=== PATIENT | female | born 1950 | race Caucasian/White ===

== ENCOUNTER 2018-07-20 18:53 | Outpatient (REF) | payer MEDICARE, BC, SELFPAY ==
[2018-07-20 20:46] LABS: ALT 52 U/L (12-78); AST 30 U/L (15-37); Albumin 3.5 g/dL (3.4-5.0); Alkaline Phosphatase 73 U/L (46-116); Anion Gap 7.2 mmol/L (3-11); BUN 22 mg/dL (7-18); Bilirubin, Total 0.6 mg/dL (0.2-1.0); CO2 30.8 mmol/L (21.0-32.0); CREATININE 0.95 mg/dL (0.55-1.02); Calcium 9.5 mg/dL (8.5-10.1); Chloride 101 mmol/L (98-107); Cholesterol 190 mg/dL (50-200); Glucose 101 mg/dL (70-100); HDL Cholesterol 66 mg/dL (40-60); LDL CHOLESTEROL 102 mg/dL (<100); Potassium 4.1 mmol/L (3.5-5.1); Sodium 139 mmol/L (136-145); Total Protein 7.2 g/dL (6.4-8.2); Triglyceride 103 mg/dL (30-150)
== END 2018-07-20 19:13 ==
LOC: NCHCN 18:53
PROVIDERS: PCP Family Medicine; Visit Provider Family Medicine
DX: I10 Essential (primary) hypertension (principal); E78.5 Hyperlipidemia, unspecified
CPT/HCPCS: 80053; 80061; 83721

== ENCOUNTER 2019-07-26 09:34 | Outpatient (REF) | payer MEDICARE, BC, SELFPAY ==
[2019-07-26 21:00] LABS: ALT 41 U/L (14-59); AST 24 U/L (15-37); Albumin 3.7 g/dL (3.4-5.0); Alkaline Phosphatase 69 U/L (46-116); Anion Gap 9.6 mmol/L (3-11); BUN 17 mg/dL (7-18); Bilirubin, Total 0.5 mg/dL (0.2-1.0); CO2 29.4 mmol/L (21.0-32.0); CREATININE 0.99 mg/dL (0.55-1.02); Calcium 9.5 mg/dL (8.5-10.1); Calculated LDL 109 mg/dL (<100); Chloride 103 mmol/L (98-107); Cholesterol 186 mg/dL (<200); Estimated GFR 55.61 (mL/min/1.73m2); Glucose 105 mg/dL (74-106); HDL Cholesterol 60 mg/dL (40-60); Hemoglobin A1C 5.4 % (3.8-5.6); Potassium 3.7 mmol/L (3.5-5.1); Sodium 142 mmol/L (136-145); Total Protein 6.9 g/dL (6.4-8.2); Triglyceride 86 mg/dL (<150)
== END 2019-07-26 09:54 ==
LOC: NCHCN 09:34
PROVIDERS: PCP Family Medicine; Visit Provider Family Medicine
DX: I10 Essential (primary) hypertension (principal); E78.5 Hyperlipidemia, unspecified; E66.9 Obesity, unspecified; Z13.1 Encounter for screening for diabetes mellitus
CPT/HCPCS: 80053; 80061; 83036

== ENCOUNTER 2021-10-02 21:10 | Outpatient (REF) | payer MEDICARE, SELFPAY ==
[2021-10-02 15:26] LABS: ALT 49 U/L (14-59); AST 27 U/L (15-37); Albumin 3.9 g/dL (3.4-5.0); Alkaline Phosphatase 71 U/L (46-116); Anion Gap 9.2 mmol/L (3-11); BUN 19 mg/dL (7-18); Bilirubin, Total 0.5 mg/dL (0.2-1.0); CO2 28.8 mmol/L (21.0-32.0); CREATININE 0.8 mg/dL (0.55-1.02); Calcium 9.4 mg/dL (8.5-10.1); Calculated LDL 118 mg/dL (<100); Chloride 103 mmol/L (98-107); Cholesterol 210 mg/dL (<200); Glucose 95 mg/dL (74-106); HDL Cholesterol 71 mg/dL (40-60); Potassium 3.6 mmol/L (3.5-5.1); Sodium 141 mmol/L (136-145); Total Protein 7.2 g/dL (6.4-8.2); Triglyceride 107 mg/dL (<150)
[2021-10-02 15:54] LABS: Hemoglobin A1C 5.4 % (<5.7)
== END 2021-10-02 21:11 | disposition home or self-care (01) ==
LOC: NCHCN 21:10
PROVIDERS: PCP Family Medicine; Visit Provider Family Medicine
DX: E78.5 Hyperlipidemia, unspecified (principal); I10 Essential (primary) hypertension; R79.89 Other specified abnormal findings of blood chemistry
CPT/HCPCS: 80053; 80061; 83036

== ENCOUNTER 2022-03-10 08:54 | Outpatient (REF) | payer MEDICARE, SELFPAY ==
[2022-03-10 16:17] LABS: Calculated LDL 82 mg/dL (<100); Cholesterol 176 mg/dL (<200); HDL Cholesterol 79 mg/dL (40-60); Triglyceride 79 mg/dL (<150)
== END 2022-03-10 08:55 | disposition home or self-care (01) ==
LOC: NCHCN 08:54
PROVIDERS: PCP Family Medicine; Visit Provider Family Medicine
DX: E78.5 Hyperlipidemia, unspecified (principal)
CPT/HCPCS: 80061

== ENCOUNTER 2022-10-06 18:20 | Outpatient (REF) | payer MEDICARE, SELFPAY ==
[2022-10-06 19:20] LABS: HGB 15.4 g/dL (11.2-15.7)
[2022-10-06 20:00] LABS: ALT 57 U/L (14-59); AST 35 U/L (15-37); Albumin 3.9 g/dL (3.4-5.0); Alkaline Phosphatase 75 U/L (46-116); Anion Gap 7.5 mmol/L (3-11); BUN 20 mg/dL (7-18); Bilirubin, Total 0.4 mg/dL (0.2-1.0); CO2 29.5 mmol/L (21.0-32.0); Calcium 9.5 mg/dL (8.5-10.1); Calculated LDL 99 mg/dL (<100); Chloride 103 mmol/L (98-107); Cholesterol 202 mg/dL (<200); Estimated GFR 59.86 (mL/min/1.73m2); Glucose 132 mg/dL (74-106); HDL Cholesterol 80 mg/dL (40-60); Sodium 140 mmol/L (136-145); TSH (W/Ref FT4) 1.44 uIU/mL (0.36-3.74); Total Protein 7.8 g/dL (6.4-8.2); Triglyceride 119 mg/dL (<150)
== END 2022-10-06 18:21 | disposition home or self-care (01) ==
LOC: NCHCN 18:20
PROVIDERS: PCP Family Medicine; Visit Provider Family Medicine
DX: I10 Essential (primary) hypertension (principal); E78.5 Hyperlipidemia, unspecified; R42 Dizziness and giddiness
CPT/HCPCS: 80053; 80061; 84443; 85014; 85018

== ENCOUNTER 2022-10-28 02:46 | Outpatient (CLI) | payer MEDICARE, SELFPAY ==
--- NOTE | 2022-10-28 15:44 | DI.MAMMO_ITS ---
Exam(s) MAMMO SCREENING EXAM: MAMMO SCREENING CLINICAL HISTORY: SCREENING, Z12.31 TECHNIQUE: Mammograms were interpreted according to the usual protocol including computer analysis w [employer] CAD system, tomosynthesis and C-view imaging. COMPARISON: 2015 through 2021 FINDINGS: The breasts are composed of scattered fibroglandular densities, Breast Density category B. No suspicious masses or suspicious microcalcifications are seen. No skin thickening or abnormal axillary lymph nodes are seen. There has been no significant change from prior exams. IMPRESSION: BI-RADS Category 1, Negative mammogram Yearly screening mammography is recommended. Breast Density - Category B, scattered fibroglandular densities. A negative radiographic report should not delay biopsy if a dominant or clinically suspicious mass is present. Up to ten percent of cancers are not identified on mammography. A negative report may reinforce clinical impression. Adenosis and dense breasts may obscure an underlying neoplasm. False positive reports average 6 to 10%. Patient will receive a letter notifying them of these results.
== END 2022-10-28 03:06 ==
LOC: DI 02:46
PROVIDERS: PCP Family Medicine; Visit Provider Family Medicine
DX: Z12.31 Encounter for screening mammogram for malignant neoplasm of breast (principal)
CPT/HCPCS: 77063; 77067

== ENCOUNTER 2022-12-16 07:32 | Outpatient (REF) | payer MEDICARE, SELFPAY ==
[2022-12-16 17:31] LABS: Anion Gap 10.3 mmol/L (3-11); BUN 15 mg/dL (7-18); CO2 25.7 mmol/L (21.0-32.0); Calcium 9.6 mg/dL (8.5-10.1); Chloride 105 mmol/L (98-107); Estimated GFR 59.86 (mL/min/1.73m2); Glucose 113 mg/dL (74-106); Potassium 3.7 mmol/L (3.5-5.1); Sodium 141 mmol/L (136-145)
== END 2022-12-16 07:33 | disposition home or self-care (01) ==
LOC: NCHCN 07:32
PROVIDERS: PCP Family Medicine; Visit Provider Family Medicine
DX: Z00.00 Encounter for general adult medical examination without abnormal findings (principal); I10 Essential (primary) hypertension
CPT/HCPCS: 80048

== ENCOUNTER 2023-10-12 15:20 | Outpatient (REF) | payer MEDICARE, SELFPAY ==
[2023-10-12 15:23] LABS: ALT 62 U/L (14-59); AST 37 U/L (15-37); Albumin 3.8 g/dL (3.4-5.0); Alkaline Phosphatase 73 U/L (46-116); Anion Gap 7.8 mmol/L (3-11); BUN 21 mg/dL (7-18); Bilirubin, Total 0.6 mg/dL (0.2-1.0); CO2 29.2 mmol/L (21.0-32.0); CREATININE 0.9 mg/dL (0.55-1.02); Calcium 9.5 mg/dL (8.5-10.1); Chloride 104 mmol/L (98-107); Glucose 106 mg/dL (74-106); Potassium 3.5 mmol/L (3.5-5.1); Sodium 141 mmol/L (136-145); Total Protein 7.2 g/dL (6.4-8.2)
== END 2023-10-12 15:21 | disposition home or self-care (01) ==
LOC: NCHCN 15:20
PROVIDERS: PCP Family Medicine; Visit Provider Family Medicine
DX: Z00.00 Encounter for general adult medical examination without abnormal findings (principal)
CPT/HCPCS: 80053

== ENCOUNTER 2024-03-14 14:23 | Outpatient (REF) | payer MEDICARE, SELFPAY ==
--- OUTSIDE RECORDS SUMMARY | 2024-03-14 14:25 | XMS_ITS | Encounter Summary ---
Author Organization [facility] Address [address] [place] [address] Care Team Providers Care Patient Registration Manager Name Role Phone Unavailable Primary Care Provider Unavailabl e Encounter Details Date Type Department Care Team (Latest Contact Info) Description 02/28/2015 8:15 EDT - 02/28/2015 23:59 EDT Hospital Encounter [address] [address] Unknown, Provider, Discharge Disposition: Home or Self Care Social History Tobacco Use Types Packs/Day Years Used Date Smoking Tobacco: Never Assessed Sex and Gender Information Value Date Recorded Sex Assigned at Not on file Gender Identity Not on file Sexual Orientation Not on file documented as of this encounter Discharge Disposition Disposition Code Departure Means Destination Home or Self Longterm documented in this encounter Plan of Treatment Not on file documented as of this encounter Visit Diagnoses Not on filedocumented in this encounter
--- OUTSIDE RECORDS SUMMARY | 2024-03-14 14:25 | XMS_ITS | Encounter Summary ---
Author Organization [facility] Address [address] [place] [address] Care Team Providers Care Street Light Inspector Name Role Phone Unavailable Primary Care Provider Unavailabl e Encounter Details Date Type Department Care Team (Late st Contact Info) Description 05/19/2010 Results Only [facility] Laboratory Services - [facility] ([facility]) [address] [place], [place] [id number] Adali Rubalcava MD [facility] [address] [place], [place] [address] Social History Tobacco Use Types Packs/Day Years Used Date Smoking Tobacco: Never Assessed Sex and Gender Information Value Date Recorded Sex Assigned at Not on file Gender Identity Not on file Sexual Orientation Not on file documented as of this encounter Plan of Treatment Not on file documented as of this encounter Procedures Procedure Name Priority Date/Time Associated Diagnosis Comments CYTOPATHOLOGY Routine 05/19/2010 0:00 EST documented in this encounter Results * CYTOPATHOLOGY (05/19/2010 0:00 EST) Pathology Report: CYTOPATHOLOGY REPORT ? Reports generated via electronic interface contain original data; ? however they are lacking the format of the original report. ? Caution should be taken when reading/interpreti ng unformatted reports. ? Name: ? MARIELA, RADAMES ? Accession #: ? [id number] ? : ? 1950 (Age: 60) ??F ?Collect Date: ? 05/19/2010 ? Location: ? [facility] ? Receive Date: ? 05/20/2010 ? Provider: ?ADALI READY MD ? Copy to: ? Specimen/Source: ?Pap Test, Cervix, ThinPrep Imaging System with manual ?? evaluation ? Last Menstrual Period: ? YEARS AGO ? SPECIMEN ADEQUACY ? Satisfactory for Evaluation ? - transformation zone component present ? GENERAL CATEGORIZATION ? Negative for Intraepithelial Lesion or Malignancy ? Document reviewed and electronically signed by: ? Skyla [place], [place](ASCP) ? Report Date: ??05/27/2010 12:09 ? End of Report ? [facility] 05/19/2010 05/20/2010 Adali Ready MD PATHOLOGY ORDERABLES [facility] [address] [place] [address] documented in this encounter Visit Diagnoses Not on filedocumented in this encounter
--- OUTSIDE RECORDS SUMMARY | 2024-03-14 14:25 | XMS_ITS | Encounter Summary ---
Author Organization [facility] Address [address] [place] [address] Care Team Providers Care Cd Technician Name Role Phone Unavailable Primary Care Provider Unavailabl e Encounter Details Date Type Department Care Team (Late st Contact Info) Description 02/28/2015 Results Only [facility] [phone] Leif Toney, [address] [place] [address] Social History Tobacco Use Types Packs/Day Years Used Date Smoking Tobacco: Never Assessed Sex and Gender Information Value Date Recorded Sex Assigned at Not on file Gender Identity Not on file Sexual Orientation Not on file documented as of this encounter Plan of Treatment Not on file documented as of this encounter Procedures Procedure Name Priority Date/Time Associated Diagnosis Comments SURGICAL PATHOLOGY Routine 02/28/2015 19 :36 EDT documented in this encounter Results * SURGICAL PATHOLOGY (02/28/2015 19:36 EDT) Pathology Report: SURGICAL PATHOLOGY REPORT Reports generated via electronic interface contain original data; however they are lacking the format of the original report. Caution should be taken when reading/interpret ing unformatted reports. Name: ? RADAMES PERRY ? Accession #: ? [id number] ? : ? 1950 (Age: 65) ??F ? Collect Date: ? 02/28/2015 ? Location: ? [facility] ? Receive Date: ? 02/28/2015 ? Provider: LEIF TONEY DO Copy to: RAFAEL ASIF MD ? Final Pathologic Diagnosis: A. ? SKIN OF EYELID, LEFT, SHAVE BIOPSY: - Xanthelasma. B. ? SKIN OF EYELID, RIGHT, SHAVE BIOPSY: - Xanthelasma. Document reviewed and electronically signed by: CRISTIAN PARK MD Report ??Date: 03/04/2015 12:44 By the signature above, the attending physician certifies that he/she has personally conducted a gross and/or microscopic examination of the described specimens and rendered or confirmed the above diagnosis. Specimen(s) Received: A. ?Left eyelid lesion B. ? Right eyelid lesion Clinical History: Clinical diagnosis codes: E78.2, M27.8, E78.4 Gross Description: A. ?Received in formalin labelled with proper patient identification (initials W, L) and left eyelid lesion is a shave biopsy of a jama-brown roughened papule (0.9 x 0.3 x 0.1 cm). ??The specimen is submitted intact in A1. B. ?Received in formalin labelled with proper patient identification (initials W, L) and right eye lid lesion is a shave biopsy of a jama-akhtar roughened papule (1.2 x 0.3 x 0.1 cm). ??The specimen is submitted intact as B1. El Brunner 03/01/2015 10:45 AM End of Report [facility] 02/28/2015 19:3 6 EDT 02/28/2015 19:36 EDT Leif Toney DO PATHOLOGY ORDER JARRET [facility] [address] [place] [address] documented in this encounter Visit Diagnoses Not on filedocumented in this encounter
--- OUTSIDE RECORDS SUMMARY | 2024-03-14 14:25 | XMS_ITS ---
Author Organization Unknown ALLERGIES AND ADVERSE REACTIONS No information ASSESSMENT No information CHIEF COMPLAINT No information MEDICATIONS No information OBJECTIVE DATA No information PHYSICAL EXAMINATION No information TREATMENT PLAN Planned Care Start Date Provider Encounter for Check-up [id number] PROBLEMS No information RESULTS No information REVIEW OF SYSTEMS No information SUBJECTIVE DATA No information VITAL SIGNS No information
--- OUTSIDE RECORDS SUMMARY | 2024-03-14 14:25 | XMS_ITS | Clinical Summary ---
Author Organization [facility] Address [address] [place] [address] Care Team Providers Care Sand Wheeler Name Role Phone Lise Mcdonald MD Primary Care Provider [phone] Social History Tobacco Use Types Packs/Day Years Used Date Smoking Tobacco: Never Assessed Sex and Gender Information Value Date Recorded Sex Assigned at Not on file Gender Identity Not on file Sexual Orientation Not on file Plan of Treatment Health Maintenance Due Date Last Done Comments Hepatitis C Screen 1950 RSV Immunization ( o r 60+ Years) (1 - 1-dose 60+ series) 2010 Fall Risk Screening 2015 COVID-19 Vaccine ( season) 2023 Care Teams Sand Wheeler Relationship Specialty Start Date End Date Lise Mcdonald MD [address] [place] [address] PCP - General 03/05/15
--- OUTSIDE RECORDS SUMMARY | 2024-03-14 14:25 | XMS_ITS | Encounter Summary ---
Author Organization [facility] Address [address] [place] [address] Care Team Providers Care Odd Jobs Day Worker Name Role Phone Unavailable Primary Care Provider Unavailabl e Encounter Details Date Type Department Care Team (Late st Contact Info) Description 12/12/2007 Before PRISM Converted Visit (Maple) [facility] Medicine [address] [address] Thien Middleton MD [address] [place], [place] [phone] Social History Tobacco Use Types Packs/Day Years Used Date Smoking Tobacco: Never Assessed Sex and Gender Information Value Date Recorded Sex Assigned at Not on file Gender Identity Not on file Sexual Orientation Not on file documented as of this encounter Plan of Treatment Not on file documented as of this encounter Procedures Procedure Name Priority Date/Time Associated Diagnosis Comments SURGICAL PATHOLOGY Routine 12/12/2007 0:00 EDT documented in this encounter Results * SURGICAL PATHOLOGY (12/12/2007 0:00 EDT) Pathology Report: SURGICAL PATHOLOGY REPORT ? Reports generated via electronic interface contain original data; ? however they are lacking the format of the original report. ? Caution should be taken when reading/interpreti ng unformatted reports. ? Name: ? PERRY, RADAMES ? Accession #: ? [id number] ? : ? 1950 (Age: 57) ??F ? Collect Date: ? 12/12/2007 ? Location: ? [facility] ? Receive Date: ? 12/12/2007 ? Provider: THIEN WALKO MD ? Copy to: ADALI READY MD ? Final Pathologic Diagnosis: ? A. ?Colon, sigmoid, 45 cm, polyp, biopsy: ? 1. ?Tubular adenoma (1 piece); no high grade dysplasia. ? 2. ? Polypoid colonic mucosa (1 piece) with surface hyperplastic changes. ? B. ?Colon, 20 cm, polyp, biopsy: ? 1. ?Hyperplastic polyp (1 piece); no adenoma. ? C. ?Rectum, polyp, biopsy: ? 1. ?Hyperplastic polyp (1 piece); no adenoma. ? Document reviewed and electronically signed by: ? Frank Patel MD ? Report ??Date: 12/14/2007 17:21 ? By the signature above, the attending physician certifies that he/she has ? personally conducted a gross and/or microscopic examination of the described ? specimens and rendered or confirmed the above diagnosis. ? Specimen(s) Received: ? A. ?Sigmoid polyp @ 45 cm (#1) ? B. ? Polyp @ 20 cm (#2) ? C. ? Rectal polyp (#3) ? Clinical History: ? Colorectal cancer screening ? Gross Description: ? Received in Kalin's fixative labelled [place] and 1 ??polyp @ 45 cm are two biopsies measuring 0.2 x 0.2 x 0.2 cm and 0.3 x 0.2 x 0.2 cm. ??The ? specimens are submitted intact as (A). ? Received in [facility] fixative labelled [place] and 2 ??polyp @ 20 cm is a 0.4 x 0.3 x 0.3 cm polypoid biopsy. ??The specimen is inked, bisected, and ? submitted entirely as (B). ? Received in Mitali's fixative labelled [place] and 3 ??rectal polyp is a 0.4 x 0.2 x 0.1 cm polypoid biopsy. ??The specimen is submitted intact as (C). ?? (SUKI Lara)/benjamink ? End of Report ? [facility] 12/12/2007 12/12/2007 17: 34 EDT Thien Middleton MD PATHOLOGY ORDERABLES [facility] [address] [place] [address] documented in this encounter Visit Diagnoses Not on filedocumented in this encounter
--- OUTSIDE RECORDS SUMMARY | 2024-03-14 14:25 | XMS_ITS | Referral Summary ---
Author Organization [facility] Address [address] [place] [address] Care Team Providers Care Apprentice Stylist Name Role Phone Lise Mcdonald MD Primary Care Provider [phone] Social History Tobacco Use Types Packs/Day Years Used Date Smoking Tobacco: Never Assessed Sex and Gender Information Value Date Recorded Sex Assigned at Not on file Gender Identity Not on file Sexual Orientation Not on file Plan of Treatment Not on file Care Teams Apprentice Stylist Relationship Specialty Start Date End Date Lise Mcdonald MD [address] [place] [id number] PCP - General 03/05/15
--- OUTSIDE RECORDS SUMMARY | 2024-03-14 14:25 | XMS_ITS | Encounter Summary ---
Author Organization [facility] Address [address] [place] [address] Care Team Providers Care Surface Water Technician Name Role Phone Unavailable Primary Care Provider Unavailabl e Encounter Details Date Type Department Care Team (Late st Contact Info) Description 08/24/2013 Results Only [facility] Laboratory Services - [facility] [place] [address] [place] [phone] Lise Martinez MD [address] [place] [phone] Social History Tobacco Use Types Packs/Day Years Used Date Smoking Tobacco: Never Assessed Sex and Gender Information Value Date Recorded Sex Assigned at Not on file Gender Identity Not on file Sexual Orientation Not on file documented as of this encounter Plan of Treatment Not on file documented as of this encounter Procedures Procedure Name Priority Date/Time Associated Diagnosis Comments PAP TEST- RESULT ONLY Routine 08/24/2013 0:00 EDT documented in this encounter Results * PAP TEST- RESULT ONLY (08/24/2013 0:00 EDT) Pathology Report: CYTOPATHOLOGY REPORT Reports generated via electronic interface contain original data; however they are lacking the format of the original report. Caution should be taken when reading/interpreti ng unformatted reports. Name: ? RADAMES PERRY ? Accession #: ? [id number] ? : ? 1950 (Age: 63) ??F ?Collect Date: ? 08/24/2013 ? Location: ? [facility] ? Receive Date: ? 08/28/2013 ? Provider: LISE MARTINEZ MD Copy to: ? Final Report SPECIMEN ADEQUACY ? Satisfactory for Evaluation - transformation zone component present GENERAL CATEGORIZATION ? Negative for Intraepithelial Lesion or Malignancy ?? Last Menstrual Period: years ago Specimen/Source: ??Pap Test, Cervix/Endocervix, ThinPrep Imaging System with manual evaluation Document reviewed and electronically signed by: ? Carolyne George, ABILIO(ASCP) ? Report ??Date: 08/30/2013 11:48 HPV with Pap Test ? Date Ordered: ? 08/30/2013 ? Status: ?? Signed Out ?Date Complete: ? 09/01/2013 ? By: ??System Interface ? Date Reported: ? 09/01/2013 ? Interpretation RESULT: Negative for HPV. No E6 or E7 mRNA is detected from HPV types 16,18,31,33,35, 39,45,51,52,56,58, 59,66, and 68 by crm coordinator mediated amplification. Comments Document reviewed and electronically signed by: ? System Interface ? Report date: 09/01/2013 By the signature above, the attending physician certifies that he/she has personally conducted a gross and/or microscopic examination of the described specimens and rendered or confirmed the above diagnosis. End of Report [facility] 08/24/2013 08/28/2013 Lise Martinez MD PATHOLOGY ORDERABLES [facility] [address] [place] [address] documented in this encounter Visit Diagnoses Not on filedocumented in this encounter
--- OUTSIDE RECORDS SUMMARY | 2024-03-14 14:26 | XMS_ITS | Encounter Summary ---
Author Organization [facility] Address [address] [place] [address] Care Team Providers Care Elementary School Librarian Name Role Phone Unavailable Primary Care Provider Unavailabl e Encounter Details Date Type Department Care Team (Late st Contact Info) Description 02/07/2003 Results Only [facility] - Maple conversion [address] [place] [address] Christy Jimenez, LIFE INSURANCE UNDERWRITER [employer] [address] [place], [place] [id number] Social History Tobacco Use Types Packs/Day Years Used Date Smoking Tobacco: Never Assessed Sex and Gender Information Value Date Recorded Sex Assigned at Not on file Gender Identity Not on file Sexual Orientation Not on file documented as of this encounter Plan of Treatment Not on file documented as of this encounter Procedures Procedure Name Priority Date/Time Associated Diagnosis Comments CYTOPATHOLOGY Routine 02/07/2003 0:00 EDT documented in this encounter Results * CYTOPATHOLOGY (02/07/2003 0:00 EDT) Pathology Report: CYTOPATHOLOGY REPORT Reports generated via electronic interface contain original data; however they are lacking the format of the original report. Caution should be taken when reading/interpreti ng unformatted reports. Name: ? RADAMES PERRY ? Accession #: ? [id number] : ? 1950 (Age: 53) ??F ?Collect Date: ? 02/07/2003 Location: ? [facility] ? Receive Date: ? 02/09/2003 Provider: ?CHRISTY JIMENEZ NP Copy to: ? Specimen/Source: ?ThinPrep Pap Test, Cervix/Endocervix Last Menstrual Period: ? SPECIMEN ADEQUACY ? Satisfactory for Evaluation - transformation zone component present GENERAL CATEGORIZATION ? Negative for Intraepithelial Lesion or Malignancy ? Document reviewed and electronically signed by: ? [place] Arambula, CT(ASCP) ? Report Date: ??02/13/2003 10:43 End of Report [facility] 02/07/2003 02/09/2003 Christy Jimenez NP PATHOLOGY ORDERABLES [facility] [address] [place] [address] documented in this encounter Visit Diagnoses Not on filedocumented in this encounter
--- OUTSIDE RECORDS SUMMARY | 2024-03-14 14:26 | XMS_ITS | Encounter Summary ---
Author Organization [facility] Address [address] [place] [address] Care Team Providers Care Geotechnical Department Manager Name Role Phone Unavailable Primary Care Provider Unavailabl e Encounter Details Date Type Department Care Team (Late st Contact Info) Description 10/05/2006 Results Only [facility] - Maple conversion [address] [place] [address] Edson Snowden, DO [address] [facility] [address] [place], [place] [id number] Social History Tobacco Use Types Packs/Day Years Used Date Smoking Tobacco: Never Assessed Sex and Gender Information Value Date Recorded Sex Assigned at Not on file Gender Identity Not on file Sexual Orientation Not on file documented as of this encounter Plan of Treatment Not on file documented as of this encounter Procedures Procedure Name Priority Date/Time Associated Diagnosis Comments SURGICAL PATHOLOGY Routine 10/05/2006 0:00 EDT documented in this encounter Results * SURGICAL PATHOLOGY (10/05/2006 0:00 EDT) Pathology Report: SURGICAL PATHOLOGY REPORT Reports generated via electronic interface contain original data; however they are lacking the format of the original report. Caution should be taken when reading/interpreti ng unformatted reports. Name: ? RADAMES PERRY ? Accession #: ? [id number] ? : ? 1950 (Age: 56) ??F ? Collect Date: ? 10/05/2006 ? Location: ? [facility] ? Receive Date: ? 10/05/2006 ? Provider: EDSON SNOWDEN DO Copy to: ADALI BENJAMIN MD ? Final Pathologic Diagnosis: ? Gallbladder, cholecystectomy: 1. ?Intestinal metaplasia and low grade dysplasia, multifocal. ??See comment. 2. ? Cholelithiasis. 3. ? Chronic cholecystitis. 4. ? Two benign lymph nodes. Comment: ? Initial sections of the gallbladder disclosed mucosal intestinal metaplasia and low grade dysplasia. ??Following this finding, the remainder of the gall bladder mucosa was submitted for histologic examination. Nearly all the sections show focal intestinal metaplasia and low grade adenomatous dysplasia. ??No carcinoma is identified. Selected sections have been reviewed at intradepartmental consultation conference. ??(Drs. Palmer and Vikram) Document reviewed and electronically signed by: Timothy Sue MD Report ??Date: 10/12/2006 14:05 By the signature above, the attending physician certifies that he/she has personally conducted a gross and/or microscopic examination of the described specimens and rendered or confirmed the above diagnosis. Specimen(s) Received: ? Gallbladder Clinical History: ? Biliary colic with stone Gross Description: ? Received in formalin labelled [place] and gallbladder is the unopened product of a cholecystectomy which measures 12.0 x 2.5 x 2.0 cm. The serosal surface is jama-pink, smooth and glistening. The cystic duct is demarcated with a staple. No cystic duct lymph node is appreciated. The mucosal surface is green with a granular texture. One yellow mulberry type cholelith is appreciated which measures 2.8 x 2.5 x 2.0 cm. The wall thickness varies from less than 0.1 cm in the distal tip where the cholelith was located to 0.2 cm near the proximal end. Two longitudinal sections of gallbladder wall and one cross section of the cystic duct are submitted intact in one cassette. ??After initial histologic review, the remainder of the gallbladder is submitted as (A2) through (A20). (Dr. Palmer)/julian End of Report [facility] 10/05/2006 10/05/2006 0:4 1 EDT Edson Snowden DO PATHOLOGY ORDER J[facility]RET [facility] [address] [place] [address] documented in this encounter Visit Diagnoses Not on filedocumented in this encounter
--- OUTSIDE RECORDS SUMMARY | 2024-03-14 14:26 | XMS_ITS | Encounter Summary ---
Author Organization [facility] Address [address] [place] [address] Care Team Providers Care Want Ad Receiver Name Role Phone Unavailable Primary Care Provider Unavailabl e Encounter Details Date Type Department Care Team (Late st Contact Info) Description 09/13/2007 Results Only [facility] - Maple conversion [address] [place] [address] Adali Rubalcava MD [facility] [address] [place], [place] [address] Social History Tobacco Use Types Packs/Day Years Used Date Smoking Tobacco: Never Assessed Sex and Gender Information Value Date Recorded Sex Assigned at Not on file Gender Identity Not on file Sexual Orientation Not on file documented as of this encounter Plan of Treatment Not on file documented as of this encounter Procedures Procedure Name Priority Date/Time Associated Diagnosis Comments CYTOPATHOLOGY Routine 09/13/2007 0:00 EDT documented in this encounter Results * CYTOPATHOLOGY (09/13/2007 0:00 EDT) Pathology Report: CYTOPATHOLOGY REPORT Reports generated via electronic interface contain original data; however they are lacking the format of the original report. Caution should be taken when reading/interpreti ng unformatted reports. Name: ? RADAMES PERRY ? Accession #: ? [id number] : ? 1950 (Age: 57) ??F ?Collect Date: ? 09/13/2007 Location: ? [facility] ? Receive Date: ? 09/14/2007 Provider: ?ADALI RUBALCAVA MD Copy to: ? Specimen/Source: ?ThinPrep Pap Test, Cervix/Endocervix, processed on [employer] ThinPrep Imaging System, with manual evaluation Last Menstrual Period: ? 7 yrs ? SPECIMEN ADEQUACY ? Satisfactory for Evaluation - transformation zone component present GENERAL CATEGORIZATION ? Negative for Intraepithelial Lesion or Malignancy ? Document reviewed and electronically signed by: ? [place] Arambula, ABILIO(ASCP) ? Report Date: ??09/15/2007 12:08 End of Report [facility] 09/13/2007 09/14/2007 Adali Rubalcava MD PATHOLOGY ORDERABLES [facility] [address] [place] [address] documented in this encounter Visit Diagnoses Not on filedocumented in this encounter
--- OUTSIDE RECORDS SUMMARY | 2024-03-14 14:26 | XMS_ITS | Encounter Summary ---
Author Organization [facility] Address [address] [place] [address] Care Team Providers Care Air Liaison And Special Staff Name Role Phone Unavailable Primary Care Provider Unavailabl e Encounter Details Date Type Department Care Team (Late st Contact Info) Description 05/28/2004 Results Only [facility] [address] [place] [address] Christy Jimenez, PROGRAM AIDE [facility] [address] [place], [place] [id number] Social History Tobacco Use Types Packs/Day Years Used Date Smoking Tobacco: Never Assessed Sex and Gender Information Value Date Recorded Sex Assigned at Not on file Gender Identity Not on file Sexual Orientation Not on file documented as of this encounter Plan of Treatment Not on file documented as of this encounter Procedures Procedure Name Priority Date/Time Associated Diagnosis Comments CYTOPATHOLOGY Routine 05/28/2004 0:00 EST documented in this encounter Results * CYTOPATHOLOGY (05/28/2004 0:00 EST) Pathology Report: CYTOPATHOLOGY REPORT Reports generated via electronic interface contain original data; however they are lacking the format of the original report. Caution should be taken when reading/interpreti ng unformatted reports. Name: ? RADAMES PERRY ? Accession #: ? [id number] : ? 1950 (Age: 54) ??F ?Collect Date: ? 05/28/2004 Location: ? [facility] ? Receive Date: ? 06/02/2004 Provider: ?CHRISTY JIMENEZ PROGRAM AIDE Copy to: ? Specimen/Source: ?ThinPrep Pap Test, Cervix/Endocervix Last Menstrual Period: ? 5 + YEARS AGO ? SPECIMEN ADEQUACY ? Satisfactory for Evaluation - transformation zone component present GENERAL CATEGORIZATION ? Negative for Intraepithelial Lesion or Malignancy ? Document reviewed and electronically signed by: ? ABILIO Menendez(ASCP) ? Report Date: ??06/05/2004 11:31 End of Report EARNEST MARTINEZ 05/28/2004 06/02/2004 Christy Jimenez NP PATHOLOGY ORDERABLES EARNEST MARTINEZ [address] [place] [address] documented in this encounter Visit Diagnoses Not on filedocumented in this encounter
[2024-03-14 15:16] LABS: HCT 43.3 % (36.0-46.0); HGB 15.3 g/dL (11.2-15.7)
[2024-03-14 16:46] LABS: Anion Gap 12.6 mmol/L (3-11); BUN 18 mg/dL (7-18); CO2 25.4 mmol/L (21.0-32.0); CREATININE 0.9 mg/dL (0.55-1.02); Calcium 9.9 mg/dL (8.5-10.1); Chloride 105 mmol/L (98-107); Estimated GFR 67.08 (mL/min/1.73m2); Glucose 96 mg/dL (74-106); Potassium 3.7 mmol/L (3.5-5.1); Sodium 143 mmol/L (136-145); TSH (W/Ref FT4) 1.21 uIU/mL (0.36-3.74)
== END 2024-03-14 14:24 | disposition home or self-care (01) ==
LOC: NCHCN 14:23
PROVIDERS: PCP Family Medicine; Visit Provider Family Medicine
DX: R42 Dizziness and giddiness (principal)
CPT/HCPCS: 80048; 84443; 85014; 85018

== ENCOUNTER 2024-10-02 15:35 | Outpatient (CLI) | payer MEDICARE, SELFPAY ==
--- NOTE | 2024-10-02 15:00 | DI.RAD_ITS ---
Exam(s) XR KNEE RT 4V AP,LAT,SANJAY,PAT EXAM: XR KNEE RT 4V AP,LAT,SANJAY,PAT CLINICAL HISTORY: R knee pain. TECHNIQUE: 2D digital imaging was performed. Three views. COMPARISON: No exams were available for comparison FINDINGS: BONES: No acute fracture is present. No bony destructive lesion is seen. Enthesophyte at upper pole of the patella. JOINTS: Mild medial femoral tibial joint space narrowing. Moderate narrowing of the tele femoral simone nt space, greater at the apex. Mild periarticular spurring.. No joint effusion is seen. SOFT TISSUE: Normal. IMPRESSION: Degenerative changes, greatest at the apex of the patellofemoral joint. DATA REPOSITORY: RADIATION DOSE DELIVERED:
== END 2024-10-02 15:36 | disposition home or self-care (01) ==
LOC: DIORS 15:35
PROVIDERS: PCP Family Medicine; Referring Provider Family Medicine; Visit Provider Physician Assistant
DX: M17.11 Unilateral primary osteoarthritis, right knee
CPT/HCPCS: 20610; J1010; 73564

== ENCOUNTER 2025-03-06 17:23 | Outpatient (REF) | payer MEDICARE, SELFPAY ==
[2025-03-06 19:47] LABS: Abs Immature Grans 0.03 10^3/uL (0.0-0.06); HCT 44.0 % (36.0-46.0); HGB 14.7 g/dL (11.2-15.7); Immature Grans % 0.4 %; MCH 31.3 pg (27.0-33.0); MCHC 33.4 % (32.0-36.0); MCV 94 fL (80-95); MPV 11.5 fL (8.0-11.0); Platelet Count 183 10^3/uL (130-400); RBC 4.70 10^6/uL (3.93-5.22); RDW 13.3 % (11.7-14.6); RDW-SD 46.3 fL; WBC 6.75 10^3/uL (4.4-10.8)
[2025-03-06 20:00] LABS: ALT 47 U/L (14-59); AST 25 U/L (15-37); Albumin 3.7 g/dL (3.4-5.0); Alkaline Phosphatase 71 U/L (46-116); Anion Gap 11.2 mmol/L (3-11); BUN 21 mg/dL (7-18); Bilirubin, Total 0.4 mg/dL (0.2-1.0); CO2 26.8 mmol/L (21.0-32.0); Calcium 9.3 mg/dL (8.5-10.1); Chloride 105 mmol/L (98-107); Estimated GFR 66.67 (mL/min/1.73m2); Glucose 95 mg/dL (74-106); Potassium 3.3 mmol/L (3.5-5.1); Sodium 143 mmol/L (136-145); TSH (W/Ref FT4) 1.47 uIU/mL (0.36-3.74); Total Protein 7.0 g/dL (6.4-8.2)
[2025-03-06 20:30] LABS: Hemoglobin A1C 5.1 % (<5.7)
== END 2025-03-06 17:24 | disposition home or self-care (01) ==
LOC: NCHCN 17:23
PROVIDERS: PCP Family Medicine; Visit Provider Family Medicine
DX: Z13.29 Encounter for screening for other suspected endocrine disorder (principal); Z13.0 Encounter for screening for diseases of the blood and blood-forming organs and certain disorders involving the immune mechanism; I10 Essential (primary) hypertension; E66.9 Obesity, unspecified
CPT/HCPCS: 80053; 83036; 84443; 85025